=== PATIENT | male | born 1930 | race Caucasian/White ===

== ENCOUNTER → 2017-01-07 | Outpatient (REF) | payer MEDICARE | LOC: M SFHCCLAY 14:16 | PROVIDERS: ATTEND Family Medicine | DX: I42.9 Cardiomyopathy, unspecified (principal) | CPT/HCPCS: 80162; G0463 ==

== ENCOUNTER → 2017-03-01 | Outpatient (REF) | payer MEDICARE ==
[2017-03-01 12:37] LABS: ALBUMIN 4.2 GM/DL (3.2-5.2); ALBUMIN/GLOBULIN RATIO 1.45 (1.00-1.93); ALKALINE PHOSPHATASE 80 U/L (45-117); ALT/SGPT 39 U/L (12-78); ANION GAP 6 MEQ/L (8-16); AST/SGOT 26 U/L (7-37); BILIRUBIN,DIRECT 0.2 MG/DL (0.0-0.2); BILIRUBIN,TOTAL 0.8 MG/DL (0.2-1.0); BLOOD UREA NITROGEN 26 MG/DL (7-18); CALCIUM LEVEL 10.4 MG/DL (8.8-10.2); CARBON DIOXIDE LEVEL 30 MEQ/L (21-32); CHLORIDE LEVEL 105 MEQ/L (98-107); CREATININE FOR GFR 0.46 MG/DL (0.70-1.30); GLOMERULAR FILTRATION RATE > 60.0 (>35); GLUCOSE, FASTING 147 MG/DL (83-110); MAGNESIUM LEVEL 2.1 MG/DL (1.8-2.4); NT-PRO BNP 618 PG/ML (<450); PHOSPHORUS LEVEL 2.7 MG/DL (2.5-4.9); POTASSIUM SERUM 4.5 MEQ/L (3.5-5.1); SODIUM LEVEL 141 MEQ/L (136-145); TOTAL PROTEIN 7.1 GM/DL (6.4-8.2)
== END ==
LOC: M LABDRAWC 11:38
DX: I50.42 Chronic combined systolic (congestive) and diastolic (congestive) heart failure (principal)
CPT/HCPCS: 83735

== ENCOUNTER 2019-06-16 12:47 | Emergency (ER) | payer MEDICARE ==
[~2019-06-16] VITALS: Ht 182.9 cm; Wt 95.5 kg
[2019-06-16] MEDS ORDERED: NS 1,000 ML IV SCH (13:32)
--- NOTE | 2019-06-16 14:07 | ECGEPIP ---
[facility] - ED Test Date: 2019-06-16 Pat Name: IMTIAZ PAGAN Department: Room: - Gender: Male Banquet Director: : [id number] Requested By: ANJELICA AGUERO Order Number: [id number] Reading MD: Roxana Nieves Measurements Intervals [place] Rate: 66 P: 75 NV: 231 QRS: -47 QRSD: 172 T: 112 QT: 448 QTc: 470 Interpretive Statements SINUS RHYTHM WITH FIRST DEGREE AV BLOCK WITH OCCASIONAL VENTRICULAR PREMATURE COM COMPLEXES MARKED LEFT AXIS DEVIATION LEFT BUNDLE BRANCH BLOCK Electronically Signed on 06-16-2019 14:06:56 EDT by Roxana Nieves
[2019-06-16 14:36] LABS: BASO % 0.2 % (0.0-1.0); EOS # 0.2 10^3/uL (0.0-0.5); EOS % 2.4 % (0.0-3.0); HEMATOCRIT 37.3 % (42.0-52.0); HEMOGLOBIN 12.3 g/dl (13.5-17.5); LYMPH % 15.3 % (24.0-44.0); MEAN CORPUSCULAR VOLUME 97.1 fl (80.0-96.0); MONO # 0.6 10^3/uL (0.0-0.8); MONO % 8.5 % (0.0-5.0); NEUTROPHILS # 4.8 10^3/uL (1.5-8.5); NEUTROPHILS % 73.3 % (36.0-66.0); PLATELET COUNT, AUTOMATED 262 10^3/uL (150-450); RED BLOOD COUNT 3.84 10^6/uL (4.30-6.10); WHITE BLOOD COUNT 6.6 10^3/uL (4.0-10.0)
[2019-06-16 15:07] LABS: ACETAMINOPHEN LEVEL < 2.0 UG/ML (10.0-30.0); ALBUMIN 3.8 GM/DL (3.2-5.2); ALT/SGPT 39 U/L (12-78); BILIRUBIN,DIRECT 0.2 MG/DL (0.0-0.2); BILIRUBIN,TOTAL 0.6 MG/DL (0.2-1.0); BLOOD UREA NITROGEN 36 MG/DL (7-18); CALCIUM LEVEL 10.5 MG/DL (8.8-10.2); CARBON DIOXIDE LEVEL 24 MEQ/L (21-32); CHLORIDE LEVEL 108 MEQ/L (98-107); CK-MB VALUE MASS 13.8 NG/ML (<3.6); CPK CREATINE PHOSPHOKINASE 150 U/L (39-308); CREATININE FOR GFR 0.58 MG/DL (0.70-1.30); GLOMERULAR FILTRATION RATE > 60.0 (>35); GLUCOSE, FASTING 120 MG/DL (70-100); POTASSIUM SERUM 5.6 MEQ/L (3.5-5.1); SALICYLATE LEVEL < 1.7 MG/DL (5.0-30.0); SODIUM LEVEL 139 MEQ/L (136-145); TOTAL PROTEIN 7.2 GM/DL (6.4-8.2); TROPONIN I < 0.02 NG/ML (< 0.10)
[2019-06-16] MEDS ORDERED: IBUP-1114 PO (15:29)
[2019-06-16] MEDS ORDERED: VITC1TAB PO (15:29)
[2019-06-16] MEDS ORDERED: BUME1TAB3 PO (15:29)
[2019-06-16] MEDS ORDERED: ENTR1TAB4 PO (15:29)
[2019-06-16] MEDS ORDERED: SPIR-10 PO (15:29)
[2019-06-16] MEDS ORDERED: METO1TAB7 PO (15:29)
[2019-06-16] MEDS ORDERED: ACET-683 PO (15:29)
[2019-06-16] MEDS ORDERED: ECOT81TA5 PO (15:29)
[2019-06-16] MEDS ORDERED: VITAD1000T PO (15:29)
[2019-06-16] MEDS ORDERED: DICL1GEL3 TOP (15:29)
[2019-06-16] MEDS ORDERED: FISH1CAP26 (15:39)
[2019-06-16] MEDS ORDERED: VITA50TA47 PO (15:39)
[2019-06-16] MEDS ORDERED: FISH10002 PO (15:39)
[2019-06-16 16:30] VITALS: BP 135/63
--- NOTE | 2019-06-16 18:00 | REP ---
CT BRAIN WITHOUT CONTRAST: CT brain performed without IV contrast. Coronal reconstruction images are performed. There is moderate atrophy. There is no midline shift or mass effect. Chronic periventricular small vessel ischemic changes are seen in the white matter bilaterally. There is no acute intracranial hemorrhage, midline shift, or mass effect. No extra-axial fluid collection is seen. There are vascular calcifications in the carotid siphons. The visualized paranasal sinuses and mastoid air cells are clear. IMPRESSION: Chronic atrophy and periventricular small vessel ischemic changes. No acute intracranial hemorrhage, midline shift, or mass effect. Electronically Signed by Jesus Heart MD 06/16/2019 07:28 P
--- NOTE | 2019-06-16 18:01 | REP ---
CHEST, SINGLE VIEW: Single view of the chest is performed. COMPARISON: 05/24/2009 There is cardiomegaly. There is calcified granuloma in the left base. There is diffuse interstitial fibrosis. No focal infiltrate is seen. There is calcification and ectasia of the thoracic aorta. Mediastinal silhouette is unchanged. IMPRESSION: Cardiomegaly and chronic fibrotic changes with no evidence for acute infiltrate. Electronically Signed by Jesus Heart MD 06/16/2019 07:28 P
== END 2019-06-16 17:06 | disposition home or self-care (01) ==
LOC: M ED 12:47
DX: G62.9 Polyneuropathy, unspecified (principal); I51.7 Cardiomegaly; J84.10 Pulmonary fibrosis, unspecified; I67.82 Cerebral ischemia; G47.30 Sleep apnea, unspecified; Z79.899 Other long term (current) drug therapy; Z79.82 Long term (current) use of aspirin; Z88.8 Allergy status to other drugs, medicaments and biological substances
CPT/HCPCS: 70450; 71045; 80048; 80076; 81001; 82140; 82550; 82553; 84443; 84484; 85025; 93005; 93041; 94760; 96360; 96361; 99285; G0480